=== PATIENT | male | born 1975 | race Caucasian/White ===

== ENCOUNTER 2023-02-11 20:41 | Emergency (ER) | payer MEDICAID ==
[~2023-02-11] VITALS: Ht 165.1 cm; Wt 63.5 kg
[~2023-02-11 20:41] MED LIST: AMOX-999 PO; BLOO1EAC9 MC; INSU100S22 SUBQ; LANC1COM6 MC; METF-1243 PO
--- NOTE | 2023-02-11 20:52 | NUR ---
Dr. Coleman examining patient.
--- NOTE | 2023-02-11 20:52 | NUR ---
PT TAKEN TO BED 11
[2023-02-11 20:55] VITALS: BP 147/98
[2023-02-11] MEDS ORDERED: BACITRACIN OINT 500 UNITS/GM PKT TP ONE (20:55)
--- NOTE | 2023-02-11 21:19 | NUR ---
WOUND IRRRIGATED, APPLIED ANTIBIOTIC AND DRESSINGS.
--- NOTE | 2023-02-11 21:31 | NUR ---
Patient discharged with v/s stable. Written and verbal after care instructions given and explained. Patient verbalized understanding. Ambulatory with steady gait. All questions addressed prior to discharge. Advised to follow up with PMD.
== END 2023-02-11 21:31 | disposition home or self-care (01) ==
LOC: MED 20:41
DX: S61.012A Laceration without foreign body of left thumb without damage to nail, initial encounter (principal); E11.9 Type 2 diabetes mellitus without complications; Z79.4 Long term (current) use of insulin; Z79.899 Other long term (current) drug therapy; W45.8XXA Other foreign body or object entering through skin, initial encounter; Y93.89 Activity, other specified; Y92.89 Other specified places as the place of occurrence of the external cause; Y99.8 Other external cause status
CPT/HCPCS: 12001; 90471; 90715; 99283